=== PATIENT | female | born 1995 | race African-American/Black ===

== ENCOUNTER 2017-11-29 09:42 | Emergency (ER) | payer SELFPAY ==
[2017-11-29 11:09] LABS: NEGATIVE OBC STREP NEG; POSITIVE OBC STREP POS
== END 2017-11-29 10:42 | disposition home or self-care (01) ==
LOC: ER 10:42
DX: J02.9 Acute pharyngitis, unspecified (principal)
CPT/HCPCS: 87070; 87880; 99284